=== PATIENT | male | born 1995 | race Caucasian/White ===

== ENCOUNTER 2016-04-06 13:15 | Emergency (ER) | payer BC ==
[2016-04-06 13:43] VITALS: BP 125/74
--- NOTE | 2016-04-06 14:05 | UC ---
UC General HPI - HPI Summary HPI Summary: 20 year old presenting with fatigue, fever-like symptoms, dizziness, vomiting, feeling nauseated, vomiting, and sore throat which worsened this morning. Denies sinus congestion. - History of Current Complaint Chief Complaint: UCGeneralIllness Stated Complaint: SORE THROAT Time Seen by Provider: 04/06/16 13:43 Hx Obtained From: Patient Onset/Duration: Gradual Onset Timing: Constant Onset Severity: Mild Current Severity: Moderate Associated Signs & Symptoms: Positive: Dizziness, Fever, Headache, Nausea, Vomiting, Weakness - Allergy/Home Medications Allergies/Adverse Reactions: Allergies Allergy/AdvReac Type Severity Reaction Status Date / Time No Known Allergies Allergy Verified 04/06/16 13:37 Home Medications: Home Medications Ibuprofen TAB* [Advil TAB*] 600 mg PO Q6H PRN 04/06/16 [History Confirmed ] Levothyroxine TAB* [Synthroid TAB*] 50 mcg PO DAILY 04/06/16 [History Confirmed 04/06/16] PMH/Surg Hx/FS Hx/Imm Hx Endocrine History Of: Reports: Thyroid Disease - Hypothyroidism Denies: Diabetes, Hyperthyroidism, Hypothyroidism Cardiovascular History Of: Reports: Cardiac Disorders - Ablation for WPW, 2003 Denies: Hypertension Respiratory History Of: Denies: Asthma GI/ History Of: Denies: Gastroesophageal Reflux Neurological History Of: Denies: TIA, Seizures Psychological History Of: Denies: Anxiety, Depression Other History Of: Negative For: Anticoagulant Therapy - Surgical History Surgical History: Yes Surgery Procedure, Year, and Place: Cardiac Ablation for W, 2003, [place]; ear tubals - 3 each - ([id number]) adenoidectomy (2000), - Family History Known Family History: Positive: None - Social History Occupation: Employed Full-time Alcohol Use: Rare Substance Use Type: None Smoking Status (MU): Light Every Day Tobacco Smoker Type: eCigarettes, Smokeless Tobacco Amount Used/How Often: 1/3 PPD When Did the Patient Quit Smoking/Using Tobacco: 3 weeks ago Household Exposure Type: Cigarettes - Immunization History Most Recent Influenza Vaccination: Not the 2016/2016 Season Vaccination Up to Date: Yes Review of Systems Constitutional: Fever, Chills, Fatigue Skin: Negative Eyes: Negative ENT: Sore Throat, Nasal Discharge Respiratory: Negative Cardiovascular: Negative Gastrointestinal: Vomiting Genitourinary: Negative Motor: Negative Neurovascular: Negative Musculoskeletal: Negative Neurological: Negative Psychological: Negative All Other Systems Reviewed And Are Negative: Yes Physical Exam Triage Information Reviewed: Yes Appearance: Well-Appearing, No Pain Distress, Well-Nourished Vital Signs: Initial Vital Signs Temp 99.3 F 04/06/16 13:36 Pulse 80 04/06/16 13:36 Resp 16 04/06/16 13:36 BP 125/74 04/06/16 13:36 Pulse Ox 98 04/06/16 13:36 Eyes: Positive: Conjunctiva Clear ENT: Positive: Hearing grossly normal, Pharyngeal erythema, Nasal congestion, TMs normal - Bilateral scar tissue, Tonsillar swelling, Tonsillar exudate, Muffled/hoarse voice Dental Exam: Normal Neck exam: Normal Neck: Positive: Supple, Nontender Respiratory Exam: Normal Respiratory: Positive: Chest non-tender, Lungs clear, Normal breath sounds, No respiratory distress, No accessory muscle use Cardiovascular: Positive: RRR, No Murmur, Pulses Normal Abdomen Description: Positive: Nontender, No Organomegaly, Soft Bowel Sounds: Positive: Present Musculoskeletal: Positive: Strength Intact, ROM Intact Neurological: Positive: Alert, Muscle Tone Normal, Fatigued Psychological Exam: Normal Skin Exam: Normal Course/Dx - Differential Dx - Multi-Symptom Provider Diagnoses: Streptococcal pharyngitis Discharge - Discharge Plan Condition: Stable Disposition: HOME Prescriptions: Amoxicillin (*) 875 mg PO BID #20 tab Patient Education Materials: Strep Throat (ED) Forms: *Work Release Referrals: Kirk Flores MD [Primary Care Provider] - If Needed
== END 2016-04-06 14:19 | disposition home or self-care (01) ==
LOC: UCCORT 13:15
DX: J02.0 Streptococcal pharyngitis (principal); E03.9 Hypothyroidism, unspecified; F17.210 Nicotine dependence, cigarettes, uncomplicated
CPT/HCPCS: 87651; 99212; G0463

== ENCOUNTER 2016-06-21 12:08 | Emergency (ER) | payer BC ==
[2016-06-21 12:48] VITALS: BP 127/67
--- NOTE | 2016-06-21 13:11 | ED ---
Upper Extremity Pain - HPI Summary HPI Summary: Rt hand dominant pt here w/ Rt hand pain s/p punching a wooden door after becoming upset from reading a text. He has pain and swelling in his 4th and 5th MC's and limited ROM in 4th and 5th phalanges d//t MC pain. Denies numbness, tingling, weakness. No finger, wrist, forearm, elbow or shoulder pain to report. He does not feel he's in danger d/t text nor does he have intentions of harming anyone. He has a h/o Rt hand fx due to punching a firm object in the past from frustration as well. Mom is w/ him today and reports he has an unspecified mood d/o but is doing much better than he was. - History of Current Complaint Chief Complaint: UCUpperExtremity Stated Complaint: RIGHT HAND INJURY Time Seen by Provider: 06/21/16 12:56 Hx Obtained From: Patient, Family/[employer]ional Sales Executive - mom - Allergies/Home Medications Allergies/Adverse Reactions: Allergies Allergy/AdvReac Type Severity Reaction Status Date / Time No Known Allergies Allergy Verified 06/21/16 12:48 PMH/Surg Hx/FS Hx/Imm Hx Previously Healthy: Yes Endocrine/Hematology History: Reports: Hx Thyroid Disease - Hypothyroidism - takes levothyroxine Denies: Hx Anticoagulant Therapy, Hx Blood Disorders, Hx Diabetes Cardiovascular History: Reports: Other Cardiovascular Problems/Disorders - WPW Denies: Hx Hypercholesterolemia, Hx Hypertension, Hx Peripheral Vascular Disease Respiratory History: Denies: Hx Asthma Musculoskeletal History: Reports: Other Musculoskeletal History - H/o Rt hand boxer's fx Denies: Hx Arthritis, Hx Osteoporosis Sensory History: Denies: Hx Cataracts, Hx Contacts or Glasses, Hx Glaucoma Opthamlomology History: Denies: Hx Cataracts, Hx Contacts or Glasses, Hx Glaucoma EENT History: Reports: Other - myringotomies and adenoidectomy Neurological History: Reports: Hx Headaches Denies: Hx Seizures, Hx Transient Ischemic Attacks (TIA) Psychiatric History: Reports: Other Psychiatric Issues/Disorders - unspecified mood d/o Denies: Hx Anxiety, Hx Depression - Surgical History Surgery Procedure, Year, and Place: Cardiac Ablation for WPW, 2004, [place]; ear tubals - 3 each - ([id number]) adenoidectomy (2000), - Immunization History Immunizations Up to Date: Yes Infectious Disease History: No Infectious Disease History: Denies: Traveled Outside the [place] in Last 30 Days Comment Only: History Other Infectious Disease - whooping cough - Family History Known Family History: Positive: Cardiac Disease, Diabetes - Social History Occupation: Employed Part-time - Career [employer] machine operator, Student - [employer] Alcohol Use: Rare Substance Use Type: Reports: Marijuana - occasionally Substance Use Comment - Amount & Last Used: 06/19/16 Smoking Status (MU): Current Every Day Smoker Type: Cigarettes, eCigarettes, Smokeless Tobacco Amount Used/How Often: / PPD Review of Systems Positive: no symptoms reported Musculoskeletal: Other - see HPI Positive: Bruising - Rt hand Neurological: Negative Negative: Weakness, Paresthesia, Numbness Psychological: Other - calm considering event All Other Systems Reviewed And Are Negative: Yes Physical Exam Triage Information Reviewed: Yes Vital Signs On Initial Exam: Initial Vitals Temp Pulse Resp BP 99.3 F 93 18 127/67 06/21/16 12:41 06/21/16 12:41 06/21/16 12:41 06/21/16 12:41 Vital Signs Reviewed: Yes Appearance: Positive: Well-Appearing, No Pain Distress, Well-Nourished Skin: Positive: Warm, Dry - SUPERFICIAL ABRASION OVER RT DORSAL HAND W/ MILD ERYTHEMA Head/Face: Positive: Normal Head/Face Inspection Eyes: Positive: Normal, EOMI, Conjunctiva Clear ENT: Positive: Hearing grossly normal, Pharynx normal Respiratory/Lung Sounds: Positive: Breath Sounds Present Cardiovascular: Positive: Normal, Pulses are Symmetrical in both Upper and Lower Extremities Musculoskeletal: Positive: Limited @ - Rt phalanges 4th and 5th limited d/t pain , Pain @ - Rt 5th MC TTP, edematous; wrist; MCP and digits NTTP Neurological: Positive: Normal, Sensory/Motor Intact, Alert, Oriented to Person Place, Time, CN Intact II-III Psychiatric: Positive: Normal Procedures - Splinting Location: Rt hand Hand-Made Type: fiberglass Splint: ulnar Pre-Proc Neuro Vasc Exam: normal Post-Proc Neuro Vasc Exam: normal Diagnostics - Vital Signs Vital Signs Temp Pulse Resp BP 06/21/16 12:41 99.3 F 93 18 127/67 - Laboratory Lab Statement: Any lab studies that have been ordered have been reviewed, and results considered in the medical decision making process. Course/Dx - Diagnoses Provider Diagnoses: Closed fracture of 5th metacarpal Discharge - Discharge Plan Condition: Stable Disposition: HOME Patient Education Materials: Splint Care (ED), Boxer Fracture (ED) Referrals: Kj Clay MD [Medical Doctor] - Kirk Flores MD [Primary Care Provider] - Additional Instructions: Rest, ice, elevate and keep splint in place until seen by orthopedist. Call today to schedule an appointment for this week or early next. You may take ibuprofen with food alternating with acetaminophen for pain relief as well. *If you develop discoloration of your fingers or have numbness, you may loosen AVE wrap to see if this improves symptoms. If not, go to ED.
[2016-06-21] MEDS ORDERED: Ibuprofen TAB* 600 MG PO ONE (13:14)
--- NOTE | 2016-06-21 13:23 | RAD ---
HISTORY: Right fifth metacarpal pain, trauma COMPARISONS: May 22, 2014 VIEWS: 4, Frontal, lateral, and oblique views of the right hand FINDINGS: BONE DENSITY: Normal. BONES: There is an angular fracture of the distal fifth metacarpal, with approximately 50 degrees of volar angulation. There is minimal radial (lateral) angulation of approximately 20 degrees. There is no significant displacement. There has been interval resolution of the fourth metacarpal fracture noted on the previous examination JOINTS: There is no arthropathy. ALIGNMENT: There is no dislocation. SOFT TISSUES: Unremarkable. OTHER FINDINGS: None. IMPRESSION: ANGULATED FRACTURE OF THE DISTAL FIFTH METACARPAL.
== END 2016-06-21 14:02 | disposition home or self-care (01) ==
LOC: UCCORT 12:08
DX: S62.306A Unspecified fracture of fifth metacarpal bone, right hand, initial encounter for closed fracture (principal); W22.8XXA Striking against or struck by other objects, initial encounter; Y93.9 Activity, unspecified; Y99.9 Unspecified external cause status
CPT/HCPCS: 26755; 99212; A9270-GY; G0463